=== PATIENT | female | born 1970 | race Caucasian/White ===

== ENCOUNTER 2019-05-25 11:27 | Inpatient (IN) | payer MEDICAID ==
[~2019-05-25] VITALS: Ht 157.5 cm; Wt 60.2 kg
[~2019-05-25 11:27] MED LIST: BUPIVACAINE/PF 0.25% ONE
[2019-05-25] MEDS ORDERED: LACTATED RINGERS 1,000 ML IV SCH (12:15)
[2019-05-25 12:52] VITALS: BP 121/77
[2019-05-25 13:01] LABS: BASOPHILS # (AUTO) 0.07 x10^3/uL (0-0.1); BASOPHILS % (AUTO) 1 % (0-1); EOSINOPHILS % (AUTO) 1 % (1-7); LYMPHOCYTES # (AUTO) 2.14 x10^3/uL (1-3.4); LYMPHOCYTES % (AUTO) 19 % (22-44); MD NO; MEAN CORPUSCULAR HEMOGLOBIN 26.8 pg (27.0-34.8); MEAN CORPUSCULAR HGB CONC 32.5 g/dL (32.4-35.8); MEAN CORPUSCULAR VOLUME 82.4 fL (80-100); MEAN PLATELET VOLUME 7.1 fL (7.4-10.4); MONOCYTES # (AUTO) 0.85 x10^3/uL (0.2-0.8); MONOCYTES % (AUTO) 8 % (2-9); NEUTROPHILS # (AUTO) 8.19 x10^3/uL (1.8-6.8); NEUTROPHILS % (AUTO) 72 % (42-75); PLATELET COUNT 971 x10^3/uL (130-400); RED BLOOD COUNT 4.47 x10^6/uL (3.82-5.3); RED CELL DISTRIBUTION WIDTH 16.5 % (9.6-15.2)
[2019-05-25] MEDS ORDERED: METF500T17 PO (13:09)
[2019-05-25] MEDS ORDERED: ZOLP-413 PO (13:09)
[2019-05-25] MEDS ORDERED: LISI-170 PO (13:09)
[2019-05-25] MEDS ORDERED: HUM100VI6 SQ (13:09)
[2019-05-25] MEDS ORDERED: AMIT50TA PO (13:09)
[2019-05-25] MEDS ORDERED: PRAV40TA2 PO (13:09)
[2019-05-25 13:12] LABS: INTERNATIONAL NORMALIZED RATIO 0.94 (0.93-1.1); PROTHROMBIN TIME 9.9 Seconds (9.6-11.5)
[2019-05-25 13:13] LABS: ALBUMIN 2.9 g/dL (3.4-5.0); ANION GAP 7 mmol/L (5-15); CHLORIDE 104 mmol/L (98-107)
[2019-05-25] MEDS ORDERED: RIVA10TA2 PO (13:15)
[2019-05-25 13:16] LABS: ALANINE AMINOTRANSFERASE 18 U/L (12-78); ALKALINE PHOSPHATASE 125 U/L (45-117); BILIRUBIN,TOTAL 0.2 mg/dL (0.2-1.0); CREATININE 0.55 mg/dL (0.55-1.02); TOTAL PROTEIN 7.4 g/dL (6.4-8.2)
[2019-05-25] MEDS ORDERED: FENTANYL PF 100 MCG/2ML ONE ×3 (18:10→22:01)
[2019-05-25] MEDS ORDERED: PROPOFOL 10 MG/ML, 20ML ONE (18:16)
[2019-05-25] MEDS ORDERED: DEXAMETHASONE 4 MG/ML, 1ML ONE (18:16)
[2019-05-25] MEDS ORDERED: CEFAZOLIN 1,000 MG ONE (18:16)
[2019-05-25] MEDS ORDERED: ROCURONIUM 10MG/ML,5ML ONE (18:55)
[2019-05-25] MEDS ORDERED: MEPERIDINE/PF 25MG/0.5ML IVPush PRN (19:00)
[2019-05-25] MEDS ORDERED: HALOPERIDOL 5 MG/ML IV PRN (19:00)
[2019-05-25] MEDS ORDERED: FENTANYL PF 100 MCG/2ML IV PRN (19:00)
[2019-05-25] MEDS ORDERED: HYDROmorphone 2 MG/ML, 1ML IVPush PRN (19:00)
[2019-05-25] MEDS ORDERED: ACETAMINOPHEN 325 MG TABLET PO PRN (19:00)
[2019-05-25] MEDS ORDERED: hydrALAzine 20 MG/ML, 1ML IV PRN (19:00)
[2019-05-25] MEDS ORDERED: PROMETHAZINE 25 MG/ML, 1ML IV PRN (19:00)
[2019-05-25] MEDS ORDERED: OXYcodone 5 MG/5 ML ORAL.SOL UDC PO PRN (19:00)
[2019-05-25] MEDS ORDERED: ALBUTEROL SULFATE 2.5 MG/3 ML NPPB PRN (19:00)
[2019-05-25] MEDS ORDERED: MEPERIDINE/PF 50 MG/ML ONE ×2 (19:43→21:26)
[2019-05-25] MEDS ORDERED: METOPROLOL 1 MG/ML, 5ML ONE (20:16)
[2019-05-25] MEDS ORDERED: NEOSTIGMINE 1 MG/ML, 10ML ONE (21:32)
[2019-05-25] MEDS ORDERED: GLYCOPYRROLATE 0.2MG/1ML, 5ML ONE (21:32)
[2019-05-25] MEDS ORDERED: OXYcodone/APAP 5/325MG TABLET PO PRN (22:00)
[2019-05-25] MEDS ORDERED: HYDROmorphone 2 MG/ML, 1ML ONE (22:01)
[2019-05-25] MEDS: KETOROLAC 30 MG/1 ML IVPush PRN (23:45)
[2019-05-26] MEDS: LACTATED RINGERS 1,000 ML IV SCH ×2 (00:10→08:00)
[2019-05-26 01:46] VITALS: BP 108/72
[2019-05-26] MEDS: KETOROLAC 30 MG/1 ML IVPush PRN (06:05)
[2019-05-26 07:59] VITALS: BP 112/76
[2019-05-26] MEDS ORDERED: OXYcodone/APAP 7.5/325MG TABLET PO PRN (09:00)
[2019-05-26] MEDS ORDERED: OXYC-306 PO (09:53)
[2019-05-26] MEDS ORDERED: ONDA4TAB7 PO (09:55)
[2019-05-26 10:17] LABS: ANION GAP 6 mmol/L (5-15); BASOPHILS # (AUTO) 0.01 x10^3/uL (0-0.1); BASOPHILS % (AUTO) 0 % (0-1); CHLORIDE 101 mmol/L (98-107); CREATININE 0.74 mg/dL (0.55-1.02); EOSINOPHILS % (AUTO) 0 % (1-7); HEMOGRAM NOTE RECHECKED; LYMPHOCYTES # (AUTO) 1.36 x10^3/uL (1-3.4); LYMPHOCYTES % (AUTO) 12 % (22-44); MD NO; MEAN CORPUSCULAR HEMOGLOBIN 25.7 pg (27.0-34.8); MEAN CORPUSCULAR HGB CONC 31.6 g/dL (32.4-35.8); MEAN CORPUSCULAR VOLUME 81.4 fL (80-100); MEAN PLATELET VOLUME 7.1 fL (7.4-10.4); MONOCYTES # (AUTO) 0.74 x10^3/uL (0.2-0.8); MONOCYTES % (AUTO) 6 % (2-9); NEUTROPHILS # (AUTO) 9.58 x10^3/uL (1.8-6.8); NEUTROPHILS % (AUTO) 82 % (42-75); PLATELET COUNT 851 x10^3/uL (130-400); RED BLOOD COUNT 3.84 x10^6/uL (3.82-5.3); RED CELL DISTRIBUTION WIDTH 16.3 % (9.6-15.2)
== END 2019-05-26 11:36 | disposition home or self-care (01) | DRG 689 ==
LOC: OUT 11:27 → 3NW 21:54 → DCLOUNGE 05-26 11:24
PROVIDERS: ADMIT Specialist; ATTEND Specialist
PROC: 0T764DZ Dilation of Right Ureter with Intraluminal Device, Percutaneous Endoscopic Approach (ICD-10-PCS; 2019-05-25)
PROC: 0TJ98ZZ Inspection of Ureter, Via Natural or Artificial Opening Endoscopic (ICD-10-PCS; 2019-05-25)
PROC: 8E0W4CZ Robotic Assisted Procedure of Trunk Region, Percutaneous Endoscopic Approach (ICD-10-PCS; principal; 2019-05-25 13:30)
DX: N13.5 Crossing vessel and stricture of ureter without hydronephrosis (principal); E11.00 Type 2 diabetes mellitus with hyperosmolarity without nonketotic hyperglycemic-hyperosmolar coma (NKHHC); N82.1 Other female urinary-genital tract fistulae; D68.59 Other primary thrombophilia; N82.9 Female genital tract fistula, unspecified; F10.10 Alcohol abuse, uncomplicated; E78.2 Mixed hyperlipidemia; J44.9 Chronic obstructive pulmonary disease, unspecified; I10 Essential (primary) hypertension; F17.210 Nicotine dependence, cigarettes, uncomplicated; Z88.0 Allergy status to penicillin; Z88.1 Allergy status to other antibiotic agents; Z88.6 Allergy status to analgesic agent; Z89.511 Acquired absence of right leg below knee; Z79.01 Long term (current) use of anticoagulants; Z86.718 Personal history of other venous thrombosis and embolism; Z90.722 Acquired absence of ovaries, bilateral; Z90.710 Acquired absence of both cervix and uterus
CPT/HCPCS: 36415; 74018; 76000; 80048; 80053; 82962; 85025; 85610; 85730; 87077; 87086; 87186; 93005; G0378; J0690; J1100; J1170; J1885; J2175; J2704; J2710; J3010; J3490; C1769; C2617; J7120

== ENCOUNTER 2019-06-02 05:09 | Inpatient (IN) | payer MEDICAID ==
[~2019-06-02] VITALS: Ht 157.5 cm; Wt 62.4 kg
[2019-06-18 12:18] VITALS: BP 128/84
== END 2019-06-18 18:28 | disposition home or self-care (01) | DRG 663 ==
LOC: ED 06:06 → EDIP 08:36 → 3NE 09:45
PROVIDERS: ADMIT Family Medicine; ATTEND Family Medicine
PROC: 0T9B70Z Drainage of Bladder with Drainage Device, Via Natural or Artificial Opening (ICD-10-PCS; 2019-06-02)
PROC: 079P30Z Drainage of Spleen with Drainage Device, Percutaneous Approach (ICD-10-PCS; 2019-06-05)
PROC: 079P30Z Drainage of Spleen with Drainage Device, Percutaneous Approach (ICD-10-PCS; 2019-06-12)
PROC: 02HV33Z Insertion of Infusion Device into Superior Vena Cava, Percutaneous Approach (ICD-10-PCS; principal; 2019-06-15)
PROC: B548ZZA Ultrasonography of Superior Vena Cava, Guidance (ICD-10-PCS; 2019-06-15)
PROC: B5181ZA Fluoroscopy of Superior Vena Cava using Low Osmolar Contrast, Guidance (ICD-10-PCS; 2019-06-15)
DX: D73.3 Abscess of spleen (principal); E43 Unspecified severe protein-calorie malnutrition; K85.00 Idiopathic acute pancreatitis without necrosis or infection; I74.11 Embolism and thrombosis of thoracic aorta; D68.61 Antiphospholipid syndrome; E11.43 Type 2 diabetes mellitus with diabetic autonomic (poly)neuropathy; K31.84 Gastroparesis; E11.65 Type 2 diabetes mellitus with hyperglycemia; E83.42 Hypomagnesemia; E86.0 Dehydration; D73.5 Infarction of spleen; D47.3 Essential (hemorrhagic) thrombocythemia; B96.20 Unspecified Escherichia coli [E. coli] as the cause of diseases classified elsewhere; E78.5 Hyperlipidemia, unspecified; E87.6 Hypokalemia; K80.20 Calculus of gallbladder without cholecystitis without obstruction; D50.9 Iron deficiency anemia, unspecified; G47.00 Insomnia, unspecified; F32.9 Major depressive disorder, single episode, unspecified; F17.200 Nicotine dependence, unspecified, uncomplicated; F12.10 Cannabis abuse, uncomplicated; I10 Essential (primary) hypertension; I51.3 Intracardiac thrombosis, not elsewhere classified; Z87.11 Personal history of peptic ulcer disease; Z79.01 Long term (current) use of anticoagulants; Z88.0 Allergy status to penicillin; Z90.49 Acquired absence of other specified parts of digestive tract; Z90.710 Acquired absence of both cervix and uterus; Z89.511 Acquired absence of right leg below knee; Z79.4 Long term (current) use of insulin; Z87.440 Personal history of urinary (tract) infections; Z79.899 Other long term (current) drug therapy; Z88.5 Allergy status to narcotic agent; Z88.1 Allergy status to other antibiotic agents; Z91.048 Other nonmedicinal substance allergy status; Z68.25 Body mass index [BMI] 25.0-25.9, adult; Z79.84 Long term (current) use of oral hypoglycemic drugs
CPT/HCPCS: 10030; 36415; 36573; 49405; 74022; 74150; 74178; 76700; 78264; 80048; 80053; 81001; 82010; 82728; 82800; 82962; 83036; 83540; 83550; 83605; 83690; 83735; 84145; 84466; 84478; 85025; 85610; 85651; 86140; 86147; 87040; 87070; 87075; 87077; 87086; 87181; 87205; 90648; 90732; 90734; 93005; 96361; 96374; 96375; 99156; 99157; G0378; J0696; J1170; J1650; J1756; J2250; J3010; Q9967; A9541; C1729; C1751; C1769; C9898; J1815; J2270; J2310; J2765; J3475; J7030; Q0163

== ENCOUNTER 2019-11-13 23:38 | Inpatient (IN) | payer MEDICAID ==
[~2019-11-13] VITALS: Ht 154.9 cm; Wt 69.5 kg
[~2019-11-13 23:38] MED LIST changes: +ACET325T26 PO; +AMIT50TA PO; -BUPIVACAINE/PF 0.25% ONE; +CARV6.2512 PO; +CEFD300C37 PO; +FLUC100T PO; +GLIP10TA13 PO; +HUM100VI6 SQ; +LACT1CAP4 PO; +LISI-170 PO; +METF500T17 PO; +METO10TA2 PO; +METR500T PO; +NICO-485 TD; +ONDA4TAB7 PO; +OXYC-306 PO; +PRAV40TA PO; +PRAV40TA2 PO; +RIVA10TA2 PO; +RIVA20TA PO; +SERT-237 PO; +ZOLP-413 PO
[2019-11-14] MEDS ORDERED: SODIUM CHLORIDE FLUSH 10ML SYR IVF ONE
[2019-11-14 00:15] LABS: BASOPHILS # (AUTO) 0.07 x10^3/uL (0-0.1); BASOPHILS % (AUTO) 0 % (0-1); EOSINOPHILS % (AUTO) 0 % (1-7); LYMPHOCYTES # (AUTO) 1.59 x10^3/uL (1-3.4); LYMPHOCYTES % (AUTO) 10 % (22-44); MD NO; MEAN CORPUSCULAR HEMOGLOBIN 29.5 pg (27.0-34.8); MEAN CORPUSCULAR HGB CONC 33.1 g/dL (32.4-35.8); MEAN CORPUSCULAR VOLUME 89.1 fL (80-100); MEAN PLATELET VOLUME 8.3 fL (7.4-10.4); MONOCYTES # (AUTO) 1.22 x10^3/uL (0.2-0.8); MONOCYTES % (AUTO) 7 % (2-9); NEUTROPHILS # (AUTO) 13.88 x10^3/uL (1.8-6.8); NEUTROPHILS % (AUTO) 83 % (42-75); PLATELET COUNT 594 x10^3/uL (130-400); RED BLOOD COUNT 5.14 x10^6/uL (3.82-5.3)
[2019-11-14 00:19] LABS: INTERNATIONAL NORMALIZED RATIO 1.02 (0.93-1.1); PROTHROMBIN TIME 10.7 Seconds (9.6-11.5)
[2019-11-14 00:28] LABS: ALANINE AMINOTRANSFERASE 19 U/L (12-78); ALBUMIN 3.6 g/dL (3.4-5.0); ALKALINE PHOSPHATASE 111 U/L (45-117); ANION GAP 7 mmol/L (5-15); CALCIUM 9.2 mg/dL (8.5-10.1); CHLORIDE 108 mmol/L (98-107); CREATININE 0.71 mg/dL (0.55-1.02); TOTAL PROTEIN 7.3 g/dL (6.4-8.2)
[2019-11-14] MEDS ORDERED: ASPIRIN 81 MG TABLET CHEW ONE (00:57)
[2019-11-14] MEDS ORDERED: ASPIRIN 81 MG TABLET CHEW PO ONE (01:00)
--- NOTE | 2019-11-14 01:30 | NUR ---
PT ASSISTED TO [facility]. UA OBTAINED. NO OTHER NEEDS AT THIS TIME.
[2019-11-14 01:54] LABS: MICROSCOPIC INDICATED
[2019-11-14] MEDS ORDERED: MAALOX/HYOSCYAMINE/LIDOCAINE 45 ML BTL PO ONE (02:00)
[2019-11-14] MEDS ORDERED: ONDANSETRON 2MG/ML, 2ML ONE (02:01)
[2019-11-14] MEDS: ONDANSETRON 2MG/ML, 2ML IVPush PRN ×2 (02:05→15:09)
--- NOTE | 2019-11-14 02:06 | NUR ---
pt medicated per jan and request of admitting md
[2019-11-14] MEDS ORDERED: SODIUM CHLORIDE 0.9% 1,000 ML IV SCH (02:10)
--- NOTE | 2019-11-14 02:22 | NUR ---
PT RESTING COMFORTALBY. REPORT TO BRIDGETTE BIRD. AWARE OF NEW ORDER FOR HEPARIN GTT.
[2019-11-14] MEDS ORDERED: hydrALAzine 20 MG/ML, 1ML IVPush PRN (02:30)
[2019-11-14] MEDS ORDERED: ACETAMINOPHEN 325 MG TABLET PO PRN (02:30)
[2019-11-14] MEDS: morphine SULFATE 10 MG/ML, 1ML IVPush PRN ×3 (02:45→18:49)
[2019-11-14] MEDS: PROMETHAZINE 25 MG/ML, 1ML IM PRN ×3 (02:46→17:52)
[2019-11-14 02:55] VITALS: BP 159/97
[2019-11-14] MEDS: INSULIN GLARGINE 100 UNITS/ML, PEN SQ-INSULIN SCH ×2 (03:00→22:20)
[2019-11-14] MEDS ORDERED: HEPARIN 5,000 UNITS/ML, 1ML IV ONE (03:00)
[2019-11-14] MEDS: HEPARIN 25,000 UNITS/500ML PMX 500 ML IV PRN (03:37)
[2019-11-14] MEDS: NICOTINE 7 MG/24 HR PATCH.TD24 TD SCH (03:39)
[2019-11-14] MEDS ORDERED: OMNIPAQUE 350 MG/ML, 100ML BOTTLE ONE ×2 (05:39→23:40)
[2019-11-14] MEDS ORDERED: SODIUM CHLORIDE 0.9% 500 ML IV ONE ×2 (06:30→07:30)
[2019-11-14] MEDS: ASPIRIN 81 MG TABLET EC PO SCH (06:35)
[2019-11-14 06:40] LABS: TROPONIN I 0.851 ng/mL (0.000-0.045)
[2019-11-14] MEDS: INSULIN LISPRO 100 UNITS/ML, PEN SQ-INSULIN SCH ×4 (07:00→22:19)
[2019-11-14] MEDS: CEFTRIAXONE PMX 2GM/50ML 50 ML IV SCH (07:27)
[2019-11-14] MEDS: CARVEDILOL 6.25 MG TABLET PO SCH ×2 (08:00→17:51)
[2019-11-14 08:20] VITALS: BP 97/61
[2019-11-14] MEDS: SERTRALINE 50MG TABLET PO SCH (08:32)
[2019-11-14] MEDS: LISINOPRIL 20 MG TABLET PO SCH (08:33)
[2019-11-14 12:30] LABS: TROPONIN I 0.495 ng/mL (0.000-0.045)
[2019-11-14] MEDS: HEPARIN 5,000 UNITS/ML, 1ML IV PRN ×2 (12:57→22:25)
[2019-11-14 14:51] VITALS: BP 112/75
[2019-11-14 15:04] LABS: AMPHETAMINE SCREEN, URINE Negative (Negative); BARBITURATE SCREEN, URINE Negative (Negative); BENZODIAZEPINE SCREEN, URINE Negative (Negative); CANNABINOID SCREEN, URINE Positive (Negative); METHADONE SCREEN, URINE Negative (Negative); OPIATE SCREEN, URINE Positive (Negative)
[2019-11-14 15:06] LABS: COCAINE SCREEN, URINE Negative (Negative)
[2019-11-14] MEDS ORDERED: PANTOPRAZOLE 20MG TABLET ONE (15:18)
[2019-11-14] MEDS ORDERED: MORPHINE SULFATE 4 MG/ML, 1ML ONE (15:22)
[2019-11-14] MEDS: MAALOX/HYOSCYAMINE/LIDOCAINE 45 ML BTL PO PRN (15:26)
[2019-11-14] MEDS ORDERED: PANTOPRAZOLE 20MG TABLET PO SCH (16:00)
[2019-11-14] MEDS ORDERED: LEVOFLOXACIN/PMX 750MG/150ML 150 ML IV SCH (16:00)
[2019-11-14] MEDS ORDERED: PANTOPRAZOLE 80 MG in SODIUM CHLORIDE 0.9% 50 ML IV ONE (18:00)
[2019-11-14 19:22] VITALS: BP 151/86
[2019-11-14] MEDS: ZOLPIDEM 5MG TABLET PO SCH (20:56)
[2019-11-14] MEDS: AMITRIPTYLINE 50 MG TABLET PO SCH (20:56)
[2019-11-14] MEDS ORDERED: PRAVASTATIN 40 MG TABLET PO SCH (21:00)
[2019-11-15 01:34] VITALS: BP 96/64
[2019-11-15] MEDS: PROMETHAZINE 25 MG/ML, 1ML IM PRN ×2 (01:54→10:04)
[2019-11-15] MEDS: morphine SULFATE 10 MG/ML, 1ML IVPush PRN ×3 (01:55→11:53)
[2019-11-15] MEDS: SODIUM CHLORIDE 0.9% 1,000 ML IV SCH ×2 (01:56→21:38)
[2019-11-15] MEDS: NICOTINE 7 MG/24 HR PATCH.TD24 TD SCH (02:56)
[2019-11-15 03:14] VITALS: BP 126/77
[2019-11-15 05:07] LABS: BASOPHILS # (AUTO) 0.08 x10^3/uL (0-0.1); BASOPHILS % (AUTO) 1 % (0-1); EOSINOPHILS # (AUTO) 0.04 x10^3/uL (0-0.4); EOSINOPHILS % (AUTO) 1 % (1-7); LYMPHOCYTES # (AUTO) 1.35 x10^3/uL (1-3.4); LYMPHOCYTES % (AUTO) 16 % (22-44); MD NO; MEAN CORPUSCULAR HEMOGLOBIN 29.4 pg (27.0-34.8); MEAN CORPUSCULAR HGB CONC 32.5 g/dL (32.4-35.8); MEAN CORPUSCULAR VOLUME 90.3 fL (80-100); MONOCYTES # (AUTO) 0.65 x10^3/uL (0.2-0.8); MONOCYTES % (AUTO) 8 % (2-9); NEUTROPHILS # (AUTO) 6.49 x10^3/uL (1.8-6.8); NEUTROPHILS % (AUTO) 75 % (42-75); PLATELET COUNT 486 x10^3/uL (130-400); RED CELL DISTRIBUTION WIDTH 17.4 % (9.6-15.2)
[2019-11-15 05:19] LABS: ALBUMIN 2.7 g/dL (3.4-5.0); ANION GAP 5 mmol/L (5-15); CALCIUM 8.9 mg/dL (8.5-10.1); CHLORIDE 109 mmol/L (98-107)
[2019-11-15 05:25] LABS: ALANINE AMINOTRANSFERASE 17 U/L (12-78); ALKALINE PHOSPHATASE 80 U/L (45-117); BILIRUBIN,TOTAL 0.9 mg/dL (0.2-1.0); CHOL/HDL RATIO 4.9; CHOLESTEROL, TOTAL 175 mg/dL (140-239); CREATININE 0.58 mg/dL (0.55-1.02); HDL CHOL % 21 % (28-40); HDL CHOLESTEROL (DIRECT) 36 mg/dL (40-60); LDL CHOLESTEROL,CALCULATED 119 mg/dL (54-169); LDL/HDL RATIO 3.3 (0.5-3.0); TOTAL PROTEIN 5.5 g/dL (6.4-8.2); TRIGLYCERIDES 101 mg/dL (50-200); VLDL CHOLESTEROL 20 mg/dL (0-25)
[2019-11-15] MEDS: ASPIRIN 81 MG TABLET EC PO SCH (05:49)
[2019-11-15] MEDS: CARVEDILOL 6.25 MG TABLET PO SCH ×2 (05:49→17:29)
[2019-11-15] MEDS: CEFTRIAXONE PMX 2GM/50ML 50 ML IV SCH (05:49)
[2019-11-15] MEDS: INSULIN LISPRO 100 UNITS/ML, PEN SQ-INSULIN SCH ×4 (06:50→21:00)
[2019-11-15 06:53] VITALS: BP 93/56
[2019-11-15] MEDS: HEPARIN 25,000 UNITS/500ML PMX 500 ML IV PRN (08:35)
[2019-11-15] MEDS: LISINOPRIL 20 MG TABLET PO SCH (08:35)
[2019-11-15] MEDS: SERTRALINE 50MG TABLET PO SCH (08:35)
[2019-11-15] MEDS ORDERED: REGADENOSON 0.4 MG/5 ML SYRINGE ONE (08:52)
[2019-11-15] MEDS: ONDANSETRON 2MG/ML, 2ML IVPush PRN (11:52)
[2019-11-15] MEDS: MAALOX/HYOSCYAMINE/LIDOCAINE 45 ML BTL PO PRN ×2 (11:52→18:00)
[2019-11-15] MEDS: HEPARIN 5,000 UNITS/ML, 1ML IV PRN (11:53)
[2019-11-15 13:33] VITALS: BP 85/55
[2019-11-15 19:47] VITALS: BP 77/50
[2019-11-15 20:10] VITALS: BP 90/60
[2019-11-15] MEDS ORDERED: POTASSIUM PHOSPHATE 22 MEQ in SODIUM CHLORIDE 0.9% 500 ML IV ONE (21:00)
[2019-11-15] MEDS: AMITRIPTYLINE 50 MG TABLET PO SCH (21:35)
[2019-11-15] MEDS: INSULIN GLARGINE 100 UNITS/ML, PEN SQ-INSULIN SCH (21:35)
[2019-11-15] MEDS: ZOLPIDEM 5MG TABLET PO SCH (21:35)
[2019-11-15] MEDS: ATORVASTATIN 80 MG TABLET PO SCH (21:35)
[2019-11-16 01:48] LABS: BASOPHILS # (AUTO) 0.04 x10^3/uL (0-0.1); BASOPHILS % (AUTO) 1 % (0-1); EOSINOPHILS % (AUTO) 2 % (1-7); LYMPHOCYTES # (AUTO) 1.44 x10^3/uL (1-3.4); LYMPHOCYTES % (AUTO) 24 % (22-44); MD NO; MEAN CORPUSCULAR HEMOGLOBIN 29.3 pg (27.0-34.8); MEAN CORPUSCULAR HGB CONC 32.7 g/dL (32.4-35.8); MEAN CORPUSCULAR VOLUME 89.7 fL (80-100); MEAN PLATELET VOLUME 8.1 fL (7.4-10.4); MONOCYTES # (AUTO) 0.77 x10^3/uL (0.2-0.8); MONOCYTES % (AUTO) 13 % (2-9); NEUTROPHILS # (AUTO) 3.74 x10^3/uL (1.8-6.8); NEUTROPHILS % (AUTO) 62 % (42-75); PLATELET COUNT 453 x10^3/uL (130-400); RED BLOOD COUNT 4.13 x10^6/uL (3.82-5.3); RED CELL DISTRIBUTION WIDTH 17.1 % (9.6-15.2)
[2019-11-16 01:55] LABS: ANION GAP 5 mmol/L (5-15); CALCIUM 8.7 mg/dL (8.5-10.1); CHLORIDE 110 mmol/L (98-107); CREATININE 0.63 mg/dL (0.55-1.02)
[2019-11-16 02:20] VITALS: BP 89/58
[2019-11-16] MEDS: SODIUM CHLORIDE 0.9% 1,000 ML IV SCH ×4 (06:32→21:43)
[2019-11-16] MEDS: CARVEDILOL 6.25 MG TABLET PO SCH ×2 (06:32→18:31)
[2019-11-16] MEDS: ASPIRIN 81 MG TABLET EC PO SCH (06:33)
[2019-11-16] MEDS: CEFTRIAXONE PMX 2GM/50ML 50 ML IV SCH (06:33)
[2019-11-16] MEDS: ONDANSETRON 2MG/ML, 2ML IVPush PRN (06:33)
[2019-11-16 07:08] VITALS: BP 107/69
[2019-11-16] MEDS: INSULIN LISPRO 100 UNITS/ML, PEN SQ-INSULIN SCH ×4 (07:34→21:56)
[2019-11-16] MEDS: LISINOPRIL 20 MG TABLET PO SCH (09:28)
[2019-11-16] MEDS: SERTRALINE 50MG TABLET PO SCH (09:29)
[2019-11-16] MEDS: HEPARIN 25,000 UNITS/500ML PMX 500 ML IV PRN (11:26)
[2019-11-16] MEDS: MAALOX/HYOSCYAMINE/LIDOCAINE 45 ML BTL PO PRN (11:26)
[2019-11-16 13:26] VITALS: BP 112/74
[2019-11-16 15:06] LABS: CLOSTRIDIUM DIFFICILE ANTIGEN POSITIVE; CLOSTRIDIUM DIFFICILE TOXIN NEGATIVE (Negative)
[2019-11-16] MEDS ORDERED: TICAGRELOR 90 MG TABLET ONE (16:34)
[2019-11-16] MEDS ORDERED: VERAPAMIL 2.5 MG/ML, 2ML ONE (16:34)
[2019-11-16] MEDS ORDERED: BIVALIRUDIN 250 MG ONE (16:34)
[2019-11-16] MEDS ORDERED: MIDAZOLAM 1 MG/ML, 5ML ONE (16:34)
[2019-11-16] MEDS ORDERED: LIDOCAINE 2%, 20ML ONE (16:34)
[2019-11-16] MEDS ORDERED: HEPARIN 1,000 UNITS/ML, 10ML ONE (16:34)
[2019-11-16] MEDS ORDERED: FENTANYL PF 100 MCG/2ML ONE (16:34)
[2019-11-16 18:30] VITALS: BP 124/77
[2019-11-16] MEDS: RIVAROXABAN 20 MG TABLET PO SCH (18:31)
[2019-11-16] MEDS: ATORVASTATIN 80 MG TABLET PO SCH (21:40)
[2019-11-16] MEDS: AMITRIPTYLINE 50 MG TABLET PO SCH (21:40)
[2019-11-16] MEDS: ZOLPIDEM 5MG TABLET PO SCH (21:40)
[2019-11-16] MEDS: INSULIN GLARGINE 100 UNITS/ML, PEN SQ-INSULIN SCH (21:56)
[2019-11-16] MEDS: morphine SULFATE 10 MG/ML, 1ML IVPush PRN (21:57)
[2019-11-17 02:12] VITALS: BP 120/78
[2019-11-17 04:48] LABS: ANION GAP 3 mmol/L (5-15); CALCIUM 8.8 mg/dL (8.5-10.1); CHLORIDE 111 mmol/L (98-107)
[2019-11-17 04:50] LABS: CREATININE 0.63 mg/dL (0.55-1.02)
[2019-11-17] MEDS: SODIUM CHLORIDE 0.9% 1,000 ML IV SCH ×3 (06:08→14:13)
[2019-11-17] MEDS: RIVAROXABAN 20 MG TABLET PO SCH (06:09)
[2019-11-17] MEDS: CARVEDILOL 6.25 MG TABLET PO SCH (06:09)
[2019-11-17] MEDS: ASPIRIN 81 MG TABLET EC PO SCH (06:09)
[2019-11-17] MEDS: CEFTRIAXONE PMX 2GM/50ML 50 ML IV SCH (06:09)
[2019-11-17 08:30] VITALS: BP 109/64
[2019-11-17] MEDS: LISINOPRIL 20 MG TABLET PO SCH (09:38)
[2019-11-17] MEDS: SERTRALINE 50MG TABLET PO SCH (09:38)
[2019-11-17] MEDS: INSULIN LISPRO 100 UNITS/ML, PEN SQ-INSULIN SCH ×3 (09:39→16:17)
[2019-11-17 12:46] VITALS: BP 119/67
[2019-11-17] MEDS ORDERED: ONDA4TAB13 SL (14:25)
[2019-11-17] MEDS ORDERED: ATOR40TA78 PO (14:25)
[2019-11-17] MEDS ORDERED: METO10TA82 PO (14:25)
[2019-11-17] MEDS ORDERED: CEFD300C37 PO (14:25)
== END 2019-11-17 17:49 | disposition home or self-care (01) | DRG 720 ==
LOC: ED 11-14 00:41 → EDIP 11-14 01:30 → 5SO 11-14 02:34
PROVIDERS: ADMIT Family Medicine; ATTEND Internal Medicine
PROC: 4A023N7 Measurement of Cardiac Sampling and Pressure, Left Heart, Percutaneous Approach (ICD-10-PCS; principal; 2019-11-16)
PROC: B215YZZ Fluoroscopy of Left Heart using Other Contrast (ICD-10-PCS; 2019-11-16)
PROC: B211YZZ Fluoroscopy of Multiple Coronary Arteries using Other Contrast (ICD-10-PCS; 2019-11-16)
DX: A41.9 Sepsis, unspecified organism (principal); I21.4 Non-ST elevation (NSTEMI) myocardial infarction; D68.61 Antiphospholipid syndrome; D68.69 Other thrombophilia; E11.65 Type 2 diabetes mellitus with hyperglycemia; E78.5 Hyperlipidemia, unspecified; Z88.6 Allergy status to analgesic agent; Z88.0 Allergy status to penicillin; Z88.8 Allergy status to other drugs, medicaments and biological substances; Z91.048 Other nonmedicinal substance allergy status; F12.10 Cannabis abuse, uncomplicated; F17.200 Nicotine dependence, unspecified, uncomplicated; F32.9 Major depressive disorder, single episode, unspecified; F51.04 Psychophysiologic insomnia; I10 Essential (primary) hypertension; K21.9 Gastro-esophageal reflux disease without esophagitis; N39.0 Urinary tract infection, site not specified; Z79.01 Long term (current) use of anticoagulants; Z79.4 Long term (current) use of insulin; Z82.49 Family history of ischemic heart disease and other diseases of the circulatory system; Z89.511 Acquired absence of right leg below knee; Z90.710 Acquired absence of both cervix and uterus; Z90.49 Acquired absence of other specified parts of digestive tract
CPT/HCPCS: 36415; 71045; 71275; 74177; 78452; 80048; 80053; 80061; 80307; 81001; 82962; 83036; 83605; 83735; 83880; 84100; 84443; 84484; 85014; 85018; 85025; 85520; 85610; 87040; 87086; 87324; 87493; 93005; 93017; 93306; 93458; 99156; 99285; C1769; C1894; G0378; J0583; J0696; J1644; J2250; J2405; J2550; J2785; J3010; Q9967; A9502; C9113; J1815; J2270; J7030; J7040